=== PATIENT | male | born 1985 | race Caucasian/White ===

== ENCOUNTER 2020-07-21 16:11 | Emergency (ER) | payer MEDICAID ==
[~2020-07-21] VITALS: Ht 167.6 cm; Wt 86.2 kg
[2020-07-21 16:25] VITALS: BP 132/71
[2020-07-21 16:27] VITALS: BP 134/105
[2020-07-21 17:34] VITALS: BP 136/99
== END 2020-07-21 17:34 | disposition home or self-care (01) ==
LOC: MED 16:11
DX: R07.9 Chest pain, unspecified (principal); F17.210 Nicotine dependence, cigarettes, uncomplicated
CPT/HCPCS: 93005; 99283

== ENCOUNTER 2020-08-15 18:01 | Emergency (ER) | payer MEDICAID ==
[~2020-08-15] VITALS: Ht 170.2 cm; Wt 89.8 kg
[2020-08-15 18:20] VITALS: BP 134/104
--- NOTE | 2020-08-15 18:50 | NUR ---
AMBULATED TO BED 3
--- NOTE | 2020-08-15 19:01 | NUR ---
34 YEAR OLD MALE COMPLAINS OF ANXIETY X TODAY. PT STATES THAT HE IS FEELING LIKE HE IS HAVING AN ANXIETY ATTACK LIKE PREVIOUS ONES. PT STATES HE FEELS HEART GOING FAST, PALPITATIONS. PT DENIES SOB. PT HR 77, RR 20, SPO2 98% ON MONITOR. PT AOX4, BREATHING EVEN AND UNLABORED, SKIN WARM AND DRY. BED IN LOWEST POSITION, LOCKED, BED RAIL UPX1. PMH - DENIES ALLERGIES - NKA
--- NOTE | 2020-08-15 19:20 | NUR ---
ENDORSEMENT GIVEN TO DANY MCPHERSON FOR CONTINUATION OF CARE
[2020-08-15 20:03] VITALS: BP 134/104
--- NOTE | 2020-08-15 20:04 | NUR ---
Patient discharged with v/s stable. Written and verbal after care instructions given and explained. Patient verbalized understanding. Ambulatory with steady gait. All questions addressed prior to discharge. Advised to follow up with PMD.
== END 2020-08-15 20:03 | disposition home or self-care (01) ==
LOC: MED 18:01
DX: F41.9 Anxiety disorder, unspecified (principal)
CPT/HCPCS: 99281

== ENCOUNTER 2020-09-12 23:15 | Emergency (ER) | payer SELFPAY ==
[~2020-09-12] VITALS: Ht 170.2 cm; Wt 88.9 kg
[2020-09-12 23:28] VITALS: BP 135/95
[2020-09-12] MEDS ORDERED: ALBUTEROL SULFATE/IPRATROPIU 3 ML SOL IH ONE (23:55)
[2020-09-12] MEDS ORDERED: DEXAMETHASONE 4 MG/ML VIAL IM ONE (23:55)
[2020-09-13] MEDS ORDERED: PRED20TA5 PO (00:48)
[2020-09-13] MEDS ORDERED: ALBU0.0912 IH (00:48)
[2020-09-13 01:05] VITALS: BP 128/82
== END 2020-09-13 01:05 | disposition home or self-care (01) ==
LOC: MED 23:15
DX: R06.02 Shortness of breath (principal); F17.210 Nicotine dependence, cigarettes, uncomplicated; Z79.899 Other long term (current) drug therapy
CPT/HCPCS: 71045; 87081; 96372; 99284; J1100; 99283